=== PATIENT | female | born 1980 | race American Indian/Alaskan Native ===

== ENCOUNTER 2019-06-09 00:57 | Outpatient (CLI) | payer MEDICAID ==
[2019-06-09 01:23] VITALS: BP 130/89
== END 2019-06-09 01:32 | disposition home or self-care (01) ==
LOC: TRG 00:57
PROVIDERS: ATTEND Obstetrics & Gynecology
DX: O47.1 False labor at or after 37 completed weeks of gestation (principal); Z3A.37 37 weeks gestation of pregnancy